=== PATIENT | male | born 1995 | race African-American/Black ===

== ENCOUNTER 2020-08-25 04:26 | Day surgery (SDC) | payer BC, OTHER ==
[2020-08-23 16:08] VITALS: BMI 19.1
[2020-08-25] MEDS ORDERED: MIDAZOLAM HCL 2 MG/2 ML SINGLE DOSE VIAL ONE ×2 (10:19)
[2020-08-25] MEDS ORDERED: PROPOFOL 20 ML ONE (10:19)
[2020-08-25] MEDS ORDERED: LIDOCAINE HCL 1%, 10 MG/ML (20ML VIAL) ONE (10:24)
[2020-08-25] MEDS ORDERED: BUPIVACAINE HCL/PF 0.5% (5 MG/ML) 30 ML VIAL IJ ONE (11:15)
[2020-08-25] MEDS ORDERED: BACITRACIN 50,000 UNITS VIAL NR ONE (11:15)
[2020-08-25] MEDS ORDERED: LIDOCAINE HCL 1%, 10 MG/ML (20ML VIAL) NR ONE (11:15)
[2020-08-25] MEDS ORDERED: ceFAZolin SODIUM 1 GM VIAL ONE (11:22)
[2020-08-25 15:28] VITALS: BP 101/67; PULSE 50; TEMP 97.1
--- NOTE | 2020-08-26 15:09 | OP ---
DATE OF OPERATION: 08/25/2020 SURGEON: Saturnino Oh DPM COSURGEON: Armando Pineda DPM RN ANESTHETIST: Octaviano Zarate DPM, PGY3 PREOPERATIVE DIAGNOSIS: Onychocryptosis, left hallux. POSTOPERATIVE DIAGNOSIS: Onychocryptosis, left hallux. PROCEDURE: exostosis, left foot. PATHOLOGY: Bone and soft tissue. ANESTHESIA: Local with MAC. HEMOSTASIS: Pneumatic left ankle tourniquet at 350 mmHg. ESTIMATED BLOOD LOSS: Minimal. MATERIALS: Nylon 3-0, Betadine-soaked Adaptic, 4 x 4's, Kerlix, and Glynn. INJECTABLES: Preoperative 8 mL total of a 1 to 1 mixture of lidocaine 1% plain and Marcaine 0.5% plain. CONDITION: Stable. COMPLICATIONS: None. DESCRIPTION OF THE PROCEDURE: The patient was brought to the operating room and placed on the operating room table in the supine position. After appropriate timeout procedures, administration of preoperative antibiotics, and identification of procedures, anesthesia was initiated by the anesthesia team. After adequate sedation, a local anesthetic block was administered to the left foot using a 1 to 1 mixture of lidocaine 1% plain and 0.5% Marcaine plain for a total of 8 mL being used. A well-padded pneumatic ankle tourniquet was then applied to the left ankle. Attention was then directed to the distal aspect of the left hallux. Utilizing a [place] elevator and a bone cutter, nail avulsion was completed along the medial border of the hallux with a bone cutter. The nail was then removed from the field for pathology. The left foot was then prepped and draped in the usual aseptic manner. An Esmarch bandage was then utilized to exsanguinate the patient's left foot, and the tourniquet was inflated to 250 mmHg. Surgery began in the following manner. Attention was directed to the medial border of the left hallux where the nail border had already been removed. Utilizing a No. 15 blade, a linear incision was made that extended from 1 cm proximal to the eponychium of the nail to the hyponychium of the nail oriented parallel to the longitudinal axis of the hallux. A second semi-elliptical incision was then made 45 degrees from the longitudinal axis of the hallux, which then encompassed the medial nail groove where the hypertrophic skin border, nail matrix, and nail bed were fully inside. The resultant wedge of tissue was then sharply dissected down to the periosteum and was excised and removed from the surgical field for pathology. A curet and a No. 15-blade were then utilized to remove any remaining matrix, and a rotary bur was used to remove any prominent bone. At this time the matrix area was inspected, and no matrix tissue was found to be present. The surgical site was then irrigated with a normal saline, Bacitracin solution. The site was closed with 3-0 nylon. The surgical sites were all dressed with Betadine-soaked Adaptic, 4 x 4 gauze, Jose F, and Glynn. The pneumatic ankle tourniquet was then deflated, and a prompt hyperemic response was noted to all digits of the left foot. The patient tolerated the procedure and anesthesia well and left the operating room to the recovery room with all vital signs stable and neurovascular status intact to the surgical foot. JUSTO Kinney/[id number]
--- NOTE | 2020-08-29 18:51 | PATH ---
Surgical Pathology Report Patient Name: YESENIA ZUÑIGA Med. Rec. #: [id number] /Age/Gender: 1995 (Age: 25) / M Account: [id number] Location: [facility] Taken: 08/25/2020 Received: 08/25/2020 Reported: 08/29/2020 Physicians: Saturnino Oh DPM Specimen(s) Received A: NAIL LEFT BIG TOE MEDIAL BORDER B: MATRIX AND NAIL BED, LEFT BIG TOE Clinical History Ingrown toenail left big toe Final Diagnosis A. NAIL, BIG TOE, MEDIAL BORDER, LEFT, EXCISION: PORTION OF NAIL WITHOUT SIGNIFICANT PATHOLOGIC FINDINGS. PAS FUNGAL STAIN IS NEGATIVE. B. MATRIX AND NAIL BED, BIG TOE, LEFT, EXCISION: PORTION OF NAIL AND NAIL BED WITH FOCAL HEMORRHAGE. PAS FUNGAL STAIN IS NEGATIVE. Electronically Signed Chastity Hunter M.D. Gross Description A. Received fresh labeled "nail left big toe medial border," is a 1.7 x 0.3 x 0.1 cm tom brown, irregular portion of unguis. The specimen is submitted in toto in one cassette. B. Received in formalin labeled "matrix and nail bed left big toe," are 4 tom-brown, irregular portions of fibrous tissue ranging from 0.5 x 0.3 x 0.1 cm to 1.1 x 0.3 x 0.2 cm. The specimens are submitted in toto in one cassette. DL/08/26/2020 saudi08/26/2020
== END 2020-08-25 15:28 | disposition home or self-care (01) ==
LOC: JASU-SURG 04:26
PROVIDERS: ATTEND Podiatrist Foot Surgery
PROC: 0HTRXZZ Resection of Toe Nail, External Approach (ICD-10-PCS; principal; 2020-08-25 10:30)
DX: L60.0 Ingrowing nail (principal)
CPT/HCPCS: 73630-TC-LT; 73630-TC-RT-FY; 88304-TC; 88312-TC; 97116-GP